=== PATIENT | male | born 1955 | race Two or more races ===

== ENCOUNTER 2020-12-02 11:36 | Inpatient (IN) | payer OTHER ==
[~2020-12-02] VITALS: Ht 157.5 cm; Wt 90.7 kg
[2020-12-02] MEDS ORDERED: AMLO2.5T4 PO (14:26)
[2020-12-02] MEDS ORDERED: INSU100V7 SQ (14:26)
[2020-12-02] MEDS ORDERED: ATOR10TA PO (14:26)
[2020-12-02] MEDS ORDERED: INSU100I4 SQ (14:26)
[2020-12-02] MEDS ORDERED: CARV3.122 PO (14:26)
[2020-12-02] MEDS ORDERED: PYRI60TA PO (14:26)
[2020-12-02] MEDS ORDERED: ASPI-1420 PO (14:26)
[2020-12-02] MEDS ORDERED: LEVO50TA8 PO (14:26)
--- NOTE | 2020-12-02 14:30 | NUR ---
VACCINE CUSTOMER REPRESENTATIVE NOTES RECEIVED PT FROM 2 AMBULANCE PERSONNEL VIA [facility], ASSISTED PT TO BED, MADE COMFORTABLE, ACCOMPANIED BY PT'S DAUGHTER HOLLI, ROOM SET UP ORIENTATION PROVIDED TO PT AND DAUGHTER, VERBALIZED UNDERSTANDING, PT DENIES PAIN OR SHORTNESS OF BREATH, CURRENTLY TOLERATES ROOM AIR, VITALS TAKEN AND RECORDED, DR. CARDONA INFORMED, AWAITING ADMISSION ORDERS.
[2020-12-02 16:00] VITALS: BP 134/74
[2020-12-02] MEDS ORDERED: ACETAMINOPHEN 325 MG TABLET PO PRN (16:30)
[2020-12-02] MEDS ORDERED: ZOLPIDEM TARTRATE 5 MG TABLET PO PRN (16:30)
[2020-12-02] MEDS ORDERED: MAGNESIUM HYDROXIDE 30 ML UDC PO PRN (16:30)
[2020-12-02] MEDS ORDERED: ONDANSETRON HCL/PF 4 MG/2 ML VIAL IVP PRN (16:30)
[2020-12-02] MEDS ORDERED: Z GUARD REMEDY 2 OZ OINT TP PRN (16:30)
[2020-12-02] MEDS ORDERED: MAG HYDROX/AL HYDROX/SIMETH 30 ML UDC PO PRN (16:30)
[2020-12-02] MEDS ORDERED: ENOXAPARIN SODIUM 40 MG/0.4 ML DISP.SYRIN SQ SCH ×2 (16:30→18:00)
[2020-12-02] MEDS ORDERED: *INSULIN REGULAR(HUMULIN R)HUM 100 UNIT/ML VIAL SQ PRN (17:00)
[2020-12-02] MEDS ORDERED: DEXTROSE 50%-WATER 50 ML DISP.SYRIN IV PRN (17:00)
[2020-12-02] MEDS: PYRIDOSTIGMINE BROMIDE 60 MG TABLET PO SCH (17:51)
[2020-12-02] MEDS: ZOSYN IVPB 3.375 G in IV D5W 50ml IV SCH (17:51)
[2020-12-02] MEDS: CARVEDILOL 3.125 MG TABLET PO SCH (17:52)
[2020-12-02] MEDS: INSULIN ASPART/LISPRO 100 UNIT/ML CARTRIDGE SQ SCH (17:58)
[2020-12-02] MEDS ORDERED: VANCOMYCIN 1.25 GM in IV D5W 250 ML IV SCH (18:00)
[2020-12-02] MEDS ORDERED: PIPERACILLIN /TAZOBACTAM 4.5 G in IV D5W 50 ML IV SCH (18:00)
[2020-12-02] MEDS: BLOOD SUGAR DIAGNOSTIC 1 EACH STRIP VI SCH ×2 (18:00→22:43)
--- NOTE | 2020-12-02 18:15 | NUR ---
POMPOM MAKER NOTES PT IN BED, RESTING, ALERT AND ORIENTED, DENIES PAIN, NOT IN DISTRESS, TOLERATES ROOM AIR, DAUGHTER HOLLI AT BEDSIDE, SEEN BY DR. CARDONA, ADMISSION ORDERS GIVEN, PLAN OF CARE DISCUSSED WITH PT AND DAUGHTER, PM CARE PROVIDED, PT AMBULATES TO THE BATHROOM WITH SLOW AND STEADY GAIT WITH STANDBY ASSISTANCE, BLOOD SUGAR CHECKED DONE, ALL NEEDS ATTENDED.
[2020-12-02 20:05] VITALS: BP 148/74
--- NOTE | 2020-12-02 20:06 | NUR ---
DIRECTOR OF RETAIL MERCHANDISING OPENING NOTE PATIENT A/OX4; GREENLANDIC SPEAKING. ON ROOM AIR; TOLERATING WELL WITH NO SOB. EXTERNAL RELIGIOUS EDUCATION COORDINATOR READS NSR AT 74. DENIES OF PAIN OR DISCOMFORT AT THIS TIME. LAC #18G; PATENT AND INTACT. GT PATENT AND INTACT. FAMILY AT BEDSIDE. SAFETY MEASURES IN PLACE: BED TO LOWEST LOCKED POSITION, SIDE RAILS UPX2; CALL LIGHT WITHIN EASY REACH, BED ALARMS ON. PATIENT IN STABLE CONDITION; WILL CONTINUE PLAN OF CARE.
[2020-12-02] MEDS ORDERED: INSULIN GLARGINE, 100 UNIT/ML CARTRIDGE SQ SCH (22:00)
--- NOTE | 2020-12-02 22:47 | NUR ---
RN Notes Patient's BS at 2235 was 106mg/dL. Held insulin glargine scheduled for 2200. Will continue to monitor the patient.
[2020-12-03 00:21] VITALS: BP 129/67
[2020-12-03] MEDS: ZOSYN IVPB 3.375 G in IV D5W 50ml IV SCH ×4 (00:33→17:21)
[2020-12-03 04:39] VITALS: BP 143/68
[2020-12-03 06:15] LABS: BASOPHILS % (AUTO) 0.3 % (0.0-2.0); EOSINOPHILS % (AUTO) 3.3 % (0.0-6.0); HEMATOCRIT 39 % (39-51); HEMOGLOBIN 12.7 g/dL (13.5-17.5); LYMPHOCYTES # (AUTO) 2.7 /CMM (0.8-4.8); LYMPHOCYTES % (AUTO) 27.8 % (20.0-44.0); MEAN CORPUSCULAR HGB CONC 33 g/dl (31.0-36.0); MEAN CORPUSCULAR VOLUME 91 fL (80-96); MONOCYTES # (AUTO) 0.8 /CMM (0.1-1.30); MONOCYTES % (AUTO) 8.7 % (2.0-12.0); NEUTROPHILS # (AUTO) 5.8 /CMM (1.8-8.9); NEUTROPHILS % (AUTO) 59.9 % (43.0-81.0); PLATELET COUNT (AUTO) 210 /CMM (150-450); RED BLOOD CELL COUNT(AUTO) 4.28 MIL/uL (4.5-6.0); WHITE BLOOD COUNT (AUTO) 9.6 K/uL (4.3-11.0)
--- NOTE | 2020-12-03 06:29 | NUR ---
WOODWORKING SHOP LABORER NOTES AM BS 185.
[2020-12-03] MEDS: INSULIN ASPART/LISPRO 100 UNIT/ML CARTRIDGE SQ SCH ×3 (06:33→17:11)
[2020-12-03] MEDS: INSULIN REGULAR, HUMAN 100 UNIT/ML 3 ML VIAL SQ PRN ×3 (06:35→17:12)
[2020-12-03] MEDS: BLOOD SUGAR DIAGNOSTIC 1 EACH STRIP VI SCH ×3 (06:38→17:12)
--- NOTE | 2020-12-03 06:39 | NUR ---
CIVILIAN TECHNICIAN NOTES PATIENT GIVEN 25 UNITS OF INSULIN ASPART /LISPRO AND 3 UNITS OF REGULAR FOR COVERAGE PRN.
[2020-12-03 06:56] LABS: ALBUMIN 3.2 g/dL (3.4-5.0); BILIRUBIN,TOTAL 0.8 mg/dL (0.2-1.0); CALCIUM, SERUM 8.1 mg/dL (8.5-10.1); CREATININE 1.2 mg/dL (0.6-1.3); MAGNESIUM 2.4 mg/dL (1.8-2.4); PHOSPHORUS 3.2 mg/dL (2.5-4.9); POTASSIUM 4.5 mmol/L (3.5-5.1); TOTAL PROTEIN, SERUM 7.2 g/dL (6.4-8.2)
[2020-12-03 07:27] LABS: THYROID STIMULATING HORMONE 3.321 uIU/mL (0.358-3.74)
[2020-12-03] MEDS ORDERED: LEVOTHYROXINE SODIUM 50 MCG TABLET PO SCH (07:30)
--- NOTE | 2020-12-03 07:32 | NUR ---
TABLE GAMES DEALER OPENING NOTES PATIENT RECEIVED AWAKE IN BED IN NO ACUTE SIGNS OF DISTRESS. HOB ELEVATED A/OX4; YI SPEAKING, DENIES PAIN OR ANY DISCOMFORTS AT THIS TIME. ON ROOM AIR, TOLERATING WELL WITH NO SOB NOTED. ON EXTERNAL RIPRAP PLACING SUPERVISOR WITH CURRENT READING OF NSR WITH PVC'S, HR ON THE 60'S, DENIES ANY CARDIAC DISTRESS AT THIS TIME. IV ACCESS ON LAC #18G INTACT, PATENT AND FLUSHES. SAFETY MEASURES IN PLACE: BED IN LOWEST LOCKED POSITION, SIDE RAILS UP X2 AND CALL LIGHT WITHIN EASY REACH OF PT, BED ALARM ON. WILL CONTINUE TO MONITOR PT ACCORDINGLY.
[2020-12-03 08:00] VITALS: BP 118/56
[2020-12-03] MEDS: PYRIDOSTIGMINE BROMIDE 60 MG TABLET PO SCH ×2 (08:25→16:57)
[2020-12-03] MEDS: CARVEDILOL 3.125 MG TABLET PO SCH ×2 (08:28→16:57)
[2020-12-03] MEDS ORDERED: ATORVASTATIN 10 MG TABLET PO SCH (09:00)
[2020-12-03] MEDS ORDERED: AMLODIPINE BESYLATE 2.5 MG TABLET PO SCH (09:00)
[2020-12-03] MEDS ORDERED: ASPIRIN EC 81 MG TABLET.DR PO SCH (09:00)
[2020-12-03] MEDS ORDERED: AMOX-430 PO (11:27)
[2020-12-03 16:57] VITALS: BP 155/71
--- NOTE | 2020-12-03 18:47 | NUR ---
RN DISCHARGED NOTES PT DISCHARGED HOME IN STABLE CONDITION. A/O X4, ABLE TO MAKE NEEDS KNOWN. ON ROOM AIR, NO SOB NOTED. V/S TAKEN, STABLE AND RECORDED. ALL DUE NURSING CARE DONE. PHOTOS OF SKIN ISSUES TAKEN AND FILED IN HIS CHART. ALL BELONGINGS ACCOUNTED FOR. IV ACCESS ON LAC REMOVED WITH NO ACTIVE BLEEDING NOTED, DRY DRESSING APPLIED TO SITE. NAME ARMBAND REMOVED. HEALTH TEACHINGS/DISCHARGED INSTRUCTIONS GIVEN TO PT AND HIS DAUGHTER HOLLI, BOTH VERBALIZED UNDERSTANDING. PT LEFT UNIT AT 1815 VIA WHEELCHAIR ACCOMPANIED BY [facility] AND PT'S DAUGHTER HOLLI. AND CHARGE NURSE AWARE OF DISCHARGE
== END 2020-12-03 18:25 | disposition home or self-care (01) | DRG 179 ==
LOC: TELE 13:49
PROVIDERS: ADMIT Internal Medicine; ATTEND Internal Medicine
DX: J69.0 Pneumonitis due to inhalation of food and vomit (principal); G70.00 Myasthenia gravis without (acute) exacerbation; E11.51 Type 2 diabetes mellitus with diabetic peripheral angiopathy without gangrene; I10 Essential (primary) hypertension; Z86.73 Personal history of transient ischemic attack (TIA), and cerebral infarction without residual deficits; E78.5 Hyperlipidemia, unspecified; E66.01 Morbid (severe) obesity due to excess calories; Z68.36 Body mass index [BMI] 36.0-36.9, adult; Z89.421 Acquired absence of other right toe(s); G47.33 Obstructive sleep apnea (adult) (pediatric); Z79.4 Long term (current) use of insulin; Z93.1 Gastrostomy status
CPT/HCPCS: 36415; 71045-TC; 80053-TC; 80061-TC; 82962-TC; 83735-TC; 84100-TC; 84443-TC; 85025-TC; 87081-TC; G0378; J1650; J1815; J2543; J3370; J7050; J7060